=== PATIENT | female | born 1960 | race Caucasian/White ===

== ENCOUNTER → 2017-04-17 | Outpatient (CLI) | payer BC ==
[~2017-04-17] MED LIST: CALCIUM 500 +1 EAC5 PO; KEFLEX500 MG PO; LORTAB 5 MG/5001 TA1 PO; MULTIVITAMINS PO; PHENERGAN25 M2 RC; SYNTHROID100 MCG PO; TUMS E.S.750 MG PO; VITAMIN D400 UNI1 PO
== END ==
LOC: RAD 14:32
DX: Z12.31 Encounter for screening mammogram for malignant neoplasm of breast (principal)

== ENCOUNTER → 2020-03-16 | Outpatient (CLI) | payer OTHER | LOC: NUC 10:37 | PROVIDERS: ATTEND Preventive Medicine Occupational Medicine | DX: M81.0 Age-related osteoporosis without current pathological fracture (principal); M25.562 Pain in left knee ==